=== PATIENT | female | born 1965 | race Two or more races ===

== ENCOUNTER 2016-06-11 08:30 | Emergency (ER) | payer SELFPAY ==
[~2016-06-11] VITALS: Ht 160 cm; Wt 81.6 kg
[~2016-06-11 08:30] MED LIST: BENZ200C39 PO; PROAIR HFA8.5 GM INH
[2016-06-11 09:18] LABS: BILIRUBIN,URINE NEGATIVE (NEG); GLUCOSE,URINE NEGATIVE (NEG); NITRITE,URINE NEGATIVE (NEG); PROTEIN,URINE NEGATIVE (NEG-TRACE)
[2016-06-11 09:29] LABS: BACTERIA,URINE FEW /HPF (0-FEW); RBC,URINE 0 /HPF (0-2); SQUAMOUS EPITHELIAL CELL,UR MANY /LPF; WBC,URINE OCC /HPF (0-4)
[2016-06-11] MEDS ORDERED: KETOROLAC TROMETHAMINE 30 MG/ML SYRINGE. IV ONE (09:45)
[2016-06-11] MEDS ORDERED: IV NORMAL SALINE 1000ML BAG 1,000 ML IV ONE ×2 (09:45→13:00)
[2016-06-11] MEDS ORDERED: ONDANSETRON PF 4 MG/2 ML VIAL. IV ONE (09:45)
--- NOTE | 2016-06-11 10:03 | PHYS DOC ---
Past Medical History Past Medical History: Arrhythmia (s/p ablation), Diverticulitis, Hypertension Past Surgical History: Cholecystectomy, Oophorectomy, Tubal ligation, Other Additional Past Surgical Histo: Cardiac ablation; R)ovary removed,Hiatel hernia Alcohol Use: Occasionally Drug Use: None Adult General Chief Complaint Chief Complaint: ABDOMINAL PAIN HPI HPI Patient is a 50 year old female who presents with 4 days of migratory abdominal pain that is crampy, intermittent, moderate, mainly in the left lower quadrant and epigastrium. She has mild associated nausea. She has associated bloating. She has taken MiraLAX for 2 days to stimulate bowel movements in case this is diverticulitis. She denies fever or chills, dysuria, hematuria, diarrhea , vaginal bleeding or discharge, chest pain, cough, dyspnea. She denies bloody or dark stools. Review of Systems Review of Systems Constitutional: Denies fever or chills [] Eyes: Denies change in visual acuity, redness, or eye pain [] HENT: Denies nasal congestion or sore throat [] Respiratory: Denies cough or shortness of breath [] Cardiovascular: No additional information not addressed in HPI [] GI: Denies vomiting, bloody stools or diarrhea [] : Denies dysuria or hematuria [] Musculoskeletal: Denies back pain or joint pain [] Integument: Denies rash or skin lesions [] Neurologic: Denies headache, focal weakness or sensory changes [] Endocrine: Denies polyuria or polydipsia [] Current Medications Current Medications Current Medications Medications (Trade) Dose Ordered Sig/[facility] Start Time Stop Time Status Last Admin Dose Admin Diltiazem HCl 10 mg 10 mg 1X ONCE 06/11/16 13:00 06/11/16 13:01 DC 06/11/16 13:37 10 MG Info (Do NOT chart on this entry -- for MONITORING) 1 each PRN DAILY PRN 06/11/16 11:45 06/11/16 14:50 DC Iohexol (Omnipaque 300 Mg/ml) 75 ml 1X ONCE 06/11/16 11:45 06/11/16 11:46 DC 06/11/16 11:58 75 ML Ketorolac Tromethamine (Toradol) 15 mg 1X ONCE 06/11/16 09:45 06/11/16 09:46 DC 06/11/16 09:53 15 MG Ondansetron HCl (Zofran) 4 mg 1X ONCE 06/11/16 09:45 06/11/16 09:46 DC 06/11/16 09:50 4 MG Sodium Chloride (Iv Sodium Chloride 0.9% 1000ml Bag) 1,000 ml @ 1,000 mls/hr 1X ONCE 06/11/16 13:00 06/11/16 13:59 DC Allergies Allergies Allergies Coded Allergies Type Severity Reaction Last Updated Verified cephalexin Allergy Intermediate rash 09/22/13 Yes ciprofloxacin Allergy Intermediate rash 09/22/13 Yes Physical Exam Physical Exam Constitutional: Well developed, well nourished, no acute distress, non-toxic appearance. [] HENT: Normocephalic, atraumatic, bilateral external ears normal, oropharynx moist, nose normal. [] Eyes: PERRLA, EOMI. [] Neck: Normal range of motion, supple. [] Cardiovascular:Heart rate regular rhythm [] Lungs & Thorax: Bilateral breath sounds clear to auscultation [] Abdomen: Bowel sounds normal, soft, moderate tenderness in right lower quadrant > left lower quadrant> epigastrium, no guarding or rebound. [] Skin: Warm, dry, no erythema, no rash. [] Back: No tenderness, no CVA tenderness. [] Extremities: ROM intact, no edema. [] Neurologic: Alert and oriented X 3, normal motor function, normal sensory function, no focal deficits noted. [] Psychologic: Affect normal, judgement normal, mood normal. [] Current Patient Data Vital Signs Vital Signs Date Time Temp Pulse Resp B/P Pulse Ox O2 Delivery O2 Flow Rate FiO2 06/11/16 13:37 128 139/115 06/11/16 12:34 18 96 Room Air 06/11/16 08:50 98.4 98.4 Lab Values Laboratory Tests Test 06/11/16 08:50 06/11/16 09:45 Urine Collection Type Void Urine Color Yellow Urine Clarity Clear Urine pH 6.0 Urine Specific [place] 1.015 Urine Protein Negativemg/dL (NEG-TRACE) Urine Glucose (UA) Negativemg/dL (NEG) Urine Ketones (Stick) Negativemg/dL (NEG) Urine Blood Moderate (NEG) Urine Nitrite Negative (NEG) Urine Bilirubin Negative (NEG) Urine Urobilinogen Dipstick 1.0mg/dL (0.2 mg/dL) Urine Leukocyte Esterase Trace (NEG) Urine RBC 0/HPF (0-2) Urine WBC Occ/HPF (0-4) Urine Squamous Epithelial Cells Many/LPF Urine Bacteria Few/HPF (0-FEW) Urine Mucus Slight/LPF White Blood Count 9.9x10^3/uL (4.0-11.0) Red Blood Count 4.55x10^6/uL (3.50-5.40) Hemoglobin 13.7g/dL (12.0-15.5) Hematocrit 40.7% (36.0-47.0) Mean Corpuscular Volume 89fL (79-100) Mean Corpuscular Hemoglobin 30pg (25-35) Mean Corpuscular Hemoglobin Concent 34g/dL (31-37) Red Cell Distribution Width 12.4% (11.5-14.5) Platelet Count 208x10^3/uL (140-400) Neutrophils (%) (Auto) 65% (31-73) Lymphocytes (%) (Auto) 24% (24-48) Monocytes (%) (Auto) 10% (0-9) H Eosinophils (%) (Auto) 2% (0-3) Basophils (%) (Auto) 1% (0-3) Neutrophils # (Auto) 6.4x10^3uL (1.8-7.7) Lymphocytes # (Auto) 2.3x10^3/uL (1.0-4.8) Monocytes # (Auto) 0.9x10^3/uL (0.0-1.1) Eosinophils # (Auto) 0.1x10^3/uL (0.0-0.7) Basophils # (Auto) 0.1x10^3/uL (0.0-0.2) Sodium Level 138mmol/L (136-145) Potassium Level 4.1mmol/L (3.5-5.1) Chloride Level 104mmol/L (98-107) Carbon Dioxide Level 26mmol/L (21-32) Anion Gap 8 (6-14) Blood Urea Nitrogen 11mg/dL (7-20) Creatinine 0.6mg/dL (0.6-1.0) Estimated GFR (Cockcroft-Gault) 105.4 Glucose Level 96mg/dL (70-99) Calcium Level 8.8mg/dL (8.5-10.1) Total Bilirubin 0.4mg/dL (0.2-1.0) Direct Bilirubin 0.1mg/dL (0.0-0.2) Aspartate Amino Transferase (AST) 34U/L (15-37) Alanine Aminotransferase (ALT) 72U/L (14-59) H Alkaline Phosphatase 104U/L (46-116) Total Protein 7.7g/dL (6.4-8.2) Albumin 3.3g/dL (3.4-5.0) L Lipase 119U/L (73-393) Laboratory Tests 06/11/16 09:45 Laboratory Tests 06/11/16 09:45 EKG EKG EKG as interpreted by me as atrial flutter with rapid ventricular rate, rate 120 , no ST-T changes Radiology/Procedures Radiology/Procedures CT abdomen and pelvis with IV contrast Impression abdomen and pelvis : 1. Diffuse sigmoid diverticulosis with acute diverticulitis. DICTATED and SIGNED BY: BROOKLYN HODGES MD DATE: 06/11/16 1215 Course & Med Decision Making Course & Med Decision Making Pertinent Labs and Imaging studies reviewed. (See chart for details) Workup is remarkable for diverticulitis. After CT, she became tachycardic with a flutter with RVR. After discussion with her, she notes intermittent symptoms of anxiety (of which she has now) and she drinks cold glass of water with usual resolution of the symptoms. After a drink of water and a dose of diltiazem, she has converted to sinus rhythm in the 80s. She no longer feels anxious. She does not want to be admitted and would like to go home with oral antibiotics. She is allergic to ciprofloxacin, so she will be prescribed Augmentin. I encouraged her to follow-up with her primary care doctor, gastroenterology, and cardiology. Return precautions given. She understands and agrees with plan. Dragon Disclaimer Dragon Disclaimer This electronic medical record was generated, in whole or in part, using a voice recognition dictation system. Departure Departure Impression: Primary Impression: Diverticulitis Additional Impression: Atrial flutter with rapid ventricular response Disposition: HOME, SELF-CARE Condition: STABLE Referrals: ASHLEY MC MD (PCP) Patient Instructions: Atrial Fibrillation, [id number], Diverticulitis, Easy- to-Read Additional Instructions: Take augmentin for diverticulitis. Take Zofran as needed for nausea. Take Tylenol or ibuprofen as needed for moderate pain. Take hydrocodone as needed for severe pain. Do not drink, drive or operate heavy machinery after taking hydrocodone as it may make you sleepy. Follow-up with your primary care doctor. Return for any concerns. Scripts Amoxicillin/Potassium Clav (Augmentin 875-125 Tablet)1 Each Tablet1 Tab PO BID # 20 TAB Prov:Luis JONES MD 06/11/16 Ondansetron (Zofran Odt)4 Mg Tab.rapdis1 Tab SL Q8HRS #10 TAB Prov:Luis JONES MD 06/11/16 Hydrocodone Bit/Acetaminophen (Hydrocodone-Apap 5-325 )1 Each Tablet1-2 Tab PO PRN Q4-6HRS PRN PAIN #20 TAB Prov:Luis JONES MD 06/11/16 Problem Qualifiers Primary Impression: Diverticulitis Diverticulitis site: large intestine Diverticulitis bleeding: without bleeding Diverticulitis complication: without perforation or abscess Qualified Code: K57.32 - Diverticulitis of large intestine without perforation or abscess without bleeding Luis JONES MD Jun 11, 2016 10:03
[2016-06-11 10:08] LABS: BASO # 0.1 x10^3/uL (0.0-0.2); BASO % 1 % (0-3); EOS % 2 % (0-3); HEMATOCRIT 40.7 % (36.0-47.0); HEMOGLOBIN 13.7 g/dL (12.0-15.5); LYMPH # 2.3 x10^3/uL (1.0-4.8); LYMPH % 24 % (24-48); MEAN CORPUSCULAR HEMOGLOBIN 30 pg (25-35); MEAN CORPUSCULAR HGB CONC 34 g/dL (31-37); MEAN CORPUSCULAR VOLUME 89 fL (79-100); MONO % 10 % (0-9); NEUT % 65 % (31-73); PLATELET COUNT 208 x10^3/uL (140-400); RED BLOOD COUNT 4.55 x10^6/uL (3.50-5.40); RED CELL DISTRIBUTION WIDTH 12.4 % (11.5-14.5); WHITE BLOOD COUNT 9.9 x10^3/uL (4.0-11.0)
[2016-06-11 10:15] LABS: CALCIUM 8.8 mg/dL (8.5-10.1); CREATININE 0.6 mg/dL (0.6-1.0); GFR 105.4; POTASSIUM 4.1 mmol/L (3.5-5.1)
[2016-06-11 10:20] LABS: ALBUMIN 3.3 g/dL (3.4-5.0); DIRECT BILIRUBIN 0.1 mg/dL (0.0-0.2); TOTAL BILIRUBIN 0.4 mg/dL (0.2-1.0); TOTAL PROTEIN 7.7 g/dL (6.4-8.2)
[2016-06-11] MEDS ORDERED: IOHEXOL 300 MG/ML 75 ML VIAL IV ONE (11:45)
[2016-06-11] MEDS ORDERED: CONTRAST GIVEN MC PRN (11:45)
--- NOTE | 2016-06-11 12:29 | RAD ---
Exam performed: CT scan of the abdomen and pelvis with contrast Clinical Indication:Generalized abdominal pain and distention, tenderness in the right lower quadrant Date of Service:06/11/16 comparison: CT abdomen pelvis from 11/05/14. Technique: Contiguous helical acquisitions are obtained from the lung bases to the pelvis during intravenous administration of 75 mL of Omnipaque 300. Sagittal and coronal reformatted images were obtained and reviewed. CT abdomen findings: The lung bases appear essentially clear. The visualized heart is normal The liver, spleen and pancreas appears unremarkable. Gallbladder is surgically absent. Both adrenal glands and bilateral kidneys appear normal with symmetric excretion of contrast via both kidneys. The small bowel loops appear nondilated and unremarkable. Aorta is normal in caliber without aneurysm. There is no retroperitoneal lymphadenopathy or mass lesions. No bowel related inflammatory stranding is noted. No obvious stranding is seen in the pericecal region. CT pelvis findings: The pelvic bowel loops are nondilated and unremarkable. Diffuse scattered colonic diverticuli with an area of inflammatory stranding in relation to the sigmoid colon the midline lower pelvis. No abnormal fluid collection or pneumoperitoneum identified. The uterus is anteverted. No adnexal masses are seen. The urinary bladder is well distended and normal . Interrogation of bone windows demonstrates degenerative disc disease at L5-S1 Sagittal and coronal reformatted images were obtained and reviewed which demonstrate no additional findings. Impression abdomen and pelvis : 1. Diffuse sigmoid diverticulosis with acute diverticulitis. PQRS Compliance Statement: One or more of the following individualized dose reduction techniques were utilized for this examination: 1. Automated exposure control 2. Adjustment of the mA and/or kV according to patient size 3. Use of iterative reconstruction technique
[2016-06-11] MEDS ORDERED: DILTIAZEM IV PUSH 25 MG/5 ML VIAL. IVP ONE (13:00)
[2016-06-11 13:37] VITALS: BP 139/115
--- NOTE | 2016-06-11 13:45 | EKG ---
[facility] [address] [place] [address] Test Date: 2016-06-11 Test Time: 12:43:01 Pat Name: LINDSAY MURPHY Department: Room: Gender: F Clinical Resource Manager: : 1965 Requested By: Luis JONES Order Number: [id number] Reading MD: Yordan Nelson Measurements Intervals [place] Rate: 120 P: CT: QRS: 20 QRSD: 72 T: 3 QT: 320 QTc: 457 Interpretive Statements ATRIAL FLUTTER Electronically Signed On 06-11-2016 15:20:05 RESIDENT ENGINEER by Yordan Nelson
[2016-06-11] MEDS ORDERED: CIPR500T PO (13:50)
[2016-06-11] MEDS ORDERED: HYDR-2666 PO (13:50)
[2016-06-11] MEDS ORDERED: ONDA4TAB10 SL (13:50)
[2016-06-11] MEDS ORDERED: METR500T4 PO (13:50)
[2016-06-11] MEDS ORDERED: AMOX1TAB61 PO (14:17)
== END 2016-06-11 14:08 | disposition home or self-care (01) ==
LOC: ER 08:30
DX: K57.92 Diverticulitis of intestine, part unspecified, without perforation or abscess without bleeding (principal); I48.92 Unspecified atrial flutter; I10 Essential (primary) hypertension; Z90.49 Acquired absence of other specified parts of digestive tract; Z90.722 Acquired absence of ovaries, bilateral; Z98.51 Tubal ligation status; Z98.890 Other specified postprocedural states
CPT/HCPCS: 36415; 74177; 80048; 80076; 81001; 83690; 85027; 87086; 93005; 96361; 96374; 96375; 99285; J1885; J2405; J3490; J7030; Q9967

== ENCOUNTER 2016-08-19 09:59 | Emergency (ER) | payer SELFPAY ==
[~2016-08-19] VITALS: Ht 157.5 cm; Wt 81.6 kg
[~2016-08-19 09:59] MED LIST changes: +AMOX1TAB61 PO; +CIPR500T PO; +HYDR-2666 PO; +METR500T4 PO; +ONDA4TAB10 SL
[2016-08-19] MEDS ORDERED: NAPROXEN 250 MG TABLET PO ONE (10:45)
[2016-08-19] MEDS ORDERED: BENZONATATE 100 MG CAPSULE. PO ONE (10:45)
--- NOTE | 2016-08-19 11:33 | RAD ---
2 view CXR: Clinical indications: Dry cough. Congestion for one week. Fever since beginning of the week.. Comparison: May 17, 2016 Findings: No acute lung infiltrate or pleural effusion or pulmonary edema or lung mass or pneumothorax is seen. The heart size, pulmonary vasculature, mediastinum and both chetan are unremarkable. The osseous structures appear intact. Impression: No acute radiographic abnormality is seen.
[2016-08-19 12:16] LABS: OBC FLU VALID
[2016-08-19] MEDS ORDERED: FLUT9.9S NS (12:40)
[2016-08-19] MEDS ORDERED: BENZ100C PO (12:40)
[2016-08-19 13:04] VITALS: BP 132/74
--- NOTE | 2016-08-19 13:39 | ED.ADGEN ---
Past Medical History Past Medical History: Arrhythmia, Diverticulitis, Hypertension Past Surgical History: Cholecystectomy, Oophorectomy, Tubal ligation, Other Additional Past Surgical Histo: Cardiac ablation; R)ovary removed,Hiatel hernia Alcohol Use: Occasionally Drug Use: None Adult General Chief Complaint Chief Complaint: COUGH HPI HPI Patient is a 51 year old woman, with history of hypertension, which is medically managed, who presents to the emergency department with complaint of rhinorrhea, sore throat, cough that is nonproductive, generalized weakness malaise, and fever over the past 2 days. Patient states that she does have positive sick contacts at work. Denies any focal weakness numbness or tingling, any headache, any blurry vision, any chest pain, any shortness of breath. States that she last used medication last night. States that her fever was up to 102.2 yesterday, has been afebrile today without taking any antipyretics. States that she's had 2 episodes of posttussive emesis, and that she has soreness in the abdomen with coughing, but no abdominal pain otherwise, no diarrhea. States she was using DayQuil and NyQuil at home along with Coricidin. She has been compliant with her blood pressure medications. Review of Systems Review of Systems Constitutional: Fever and chills, generalized malaise. Eyes: Denies change in visual acuity. [] HENT: Nasal congestion and sore throat. Respiratory: No shortness of breath, cough that is nonproductive. Cardiovascular: Denies chest pain or edema. [] GI: Denies abdominal pain, nausea, vomiting, bloody stools or diarrhea. [] : Denies dysuria. [] Musculoskeletal: Denies back pain or joint pain. [] Integument: Denies rash. [] Neurologic: Denies headache, focal weakness or sensory changes. [] Endocrine: Denies polyuria or polydipsia. [] Lymphatic: Denies swollen glands. [] Psychiatric: Denies depression or anxiety. [] Current Medications Current Medications Current Medications Medications (Trade) Dose Ordered Sig/[place] Start Time Stop Time Status Last Admin Dose Admin Benzonatate (Tessalon Perle) 100 mg 1X ONCE 08/19/16 10:45 08/19/16 10:46 DC 08/19/16 12:04 100 MG Naproxen (Naprosyn) 250 mg 1X ONCE 08/19/16 10:45 08/19/16 10:46 DC 08/19/16 12:04 250 MG Allergies Allergies Allergies Coded Allergies Type Severity Reaction Last Updated Verified cephalexin Allergy Intermediate rash 09/22/13 Yes ciprofloxacin Allergy Intermediate rash 09/22/13 Yes Physical Exam Physical Exam Constitutional: Well developed, well nourished, no acute distress, non-toxic appearance. [] HENT: Normocephalic, atraumatic, bilateral external ears normal, oropharynx moist, no oral exudates, nose normal. Oropharynx is mildly injected, patient with clear rhinorrhea bilaterally with mild turbinate swelling. [] Eyes: PERRLA, EOMI, conjunctiva normal, no discharge. [] Neck: Normal range of motion, no tenderness, supple, no stridor. [] Cardiovascular:Heart rate regular rhythm, no murmur, S1, S2, rubs or gallops. [] Lungs & Thorax: Bilateral breath sounds clear to auscultation, no wheezing, rhonchi, rales. Patient coughing with deep inspiration. No chest wall crepitus. Patient with mild chest tenderness bilaterally in the lower ribs. [] Abdomen: Bowel sounds normal, soft, no tenderness, no masses, no pulsatile masses. [] Skin: Warm, dry, no erythema, no rash. [] Back: No tenderness, no CVA tenderness. [] Extremities: No tenderness, no cyanosis, no clubbing, ROM intact, no edema. Negative Homans sign. [] Neurologic: Alert and oriented X 3, normal motor function, normal sensory function, no focal deficits noted. [] Psychologic: Affect normal, judgement normal, mood normal. [] Current Patient Data Vital Signs Vital Signs Date Time Temp Pulse Resp B/P Pulse Ox O2 Delivery O2 Flow Rate FiO2 08/19/16 13:04 79 18 132/74 99 08/19/16 10:02 98.6 Room Air 98.6 Lab Values Laboratory Tests Test 08/19/16 11:50 Influenza Type A Antigen Negative (NEGATIVE) Influenza Type B Antigen Negative (NEGATIVE) EKG EKG ECG: Rhythm strip: Sinus rhythm, heart rate 79 beats/minute, no ectopy. As interpreted by me. Radiology/Procedures Radiology/Procedures [] [facility] [address] [place] [address] IMAGING REPORT Signed PATIENT: LINDSAY MURPHY ACCOUNT: [id number] : 1965 LOCATION: ER AGE: 51 SEX: F EXAM STATUS: REG ER ORD. PHYSICIAN: RACHID CENTENO DO REASON: cough/fever PROCEDURE: CHEST PA & LATERAL 2 view CXR: Clinical indications: Dry cough. Congestion for one week. Fever since beginning of the week.. Comparison: May 17, 2016 Findings: No acute lung infiltrate or pleural effusion or pulmonary edema or lung mass or pneumothorax is seen. The heart size, pulmonary vasculature, mediastinum and both chetan are unremarkable. The osseous structures appear intact. Impression: No acute radiographic abnormality is seen. DICTATED and SIGNED BY: ERIBERTO REECE MD DATE: 08/19/16 1129 CC: RACHID CENTENO DO; UNKNOWN PCP NAME ~ Course & Med Decision Making Course & Med Decision Making Pertinent Labs and Imaging studies reviewed. (See chart for details) Patient's examination and history are consistent with a viral upper respiratory infection. Oxygen saturation is in the upper 90s, patient is coughing during examination, therefore chest x-ray obtained to rule out any occult lung findings. Chest x-ray was unremarkable. Patient received naproxen and Tessalon Perle in the ED with improvement of her symptoms. Tolerating by mouth fluids without issue. Flu swab was negative and the ED. Patient afebrile without antipyretics in the ED, blood pressure 130s over 80s, adequate control with her oral home medications, heart rate is in the 70s. Rest for rate is 18 and unlabored as stated, we did discuss concerning symptoms that prompt return to the emergency department, use of supportive measures including pushing fluids and antipyretics, also use of Flonase and Tessalon Perles. Patient discharged home in stable condition with prescription for Tessalon Perle, Flonase, with clear and detailed return instructions as stated and plan as above. Dragon Disclaimer Dragon Disclaimer This electronic medical record was generated, in whole or in part, using a voice recognition dictation system. Departure Impression: Primary Impression: Viral infection Disposition: 01 HOME, SELF-CARE Condition: IMPROVED Scripts Fluticasone Propionate (Flonase Allergy Relief)9.9 Ml [place].susp2 Sprays NS DAILY PRN NASAL CONGESTION #1 BOTTLE Prov:RACHID CENTENO DO 08/19/16 Benzonatate (Tessalon Perle)100 Mg [id number] Mg PO TID PRN COUGH #12 CAP Prov:RACHID CENTENO DO 08/19/16 RACHID CENTENO DO Aug 19, 2016 13:39
== END 2016-08-19 13:04 | disposition home or self-care (01) ==
LOC: ER 09:59
DX: B34.9 Viral infection, unspecified (principal); J02.9 Acute pharyngitis, unspecified; I10 Essential (primary) hypertension; Z88.1 Allergy status to other antibiotic agents
CPT/HCPCS: 71020; 87804; 99285-25